=== PATIENT | female | born 1960 | race Caucasian/White ===

== ENCOUNTER 2024-11-10 13:33 | Outpatient (CLI) | payer BC | END 2024-11-10 13:34 | disposition home or self-care (01) | LOC: CSHMAMMO 13:33 | PROVIDERS: ATTEND Family Medicine | DX: Z12.31 Encounter for screening mammogram for malignant neoplasm of breast (principal); N95.1 Menopausal and female climacteric states; M85.851 Other specified disorders of bone density and structure, right thigh | CPT/HCPCS: 77063; 77067; 77080 ==